=== PATIENT | male | born 1970 | race Caucasian/White ===

== ENCOUNTER 2017-07-29 09:10 | Emergency (ER) | payer BC ==
[2017-07-29 09:28] VITALS: BP 133/93
--- NOTE | 2017-07-29 10:16 | EDM.PDOC ---
ED HPI GENERAL MEDICAL PROBLEM - General Chief Complaint: Cardiovascular Problem Stated Complaint: HEART BEATING FAST Time Seen by Provider: 07/29/17 09:33 Source of Information: Reports: Patient History Limitations: Reports: No Limitations - History of Present Illness INITIAL COMMENTS - FREE TEXT/NARRATIVE: Patient has known history of atrial fibrillation. He had been taking metoprolol but is not at this time. He has been having palpitations over the last 2-3 weeks. He denies any shortness of breath, however he did have some chest pain. This has resolved. 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 He denies arm or jaw pain, no back pain, no diaphoresis, chills, abdominal pain, nausea, or vomiting. He did say he had blood in his stool and was supposed to have completed a kit for that. His primary had given it to him. We did talk about the importance of completing that to make sure colorectal cancer can be screened. Onset: Gradual Duration: Intermittent Location: Reports: Chest Quality: Reports: Ache (resolved on arrival to hospital) Severity: Mild Worsens with: Reports: Other (stress, anxiety) Associated Symptoms: Reports: No Other Symptoms - Related Data Allergies Allergy/AdvReac Type Severity Reaction Status Date / Time No Known Allergies Allergy Verified 07/29/17 09:31 Home Meds: Home Meds Aspirin [Adult Low Dose Aspirin EC] 81 mg PO DAILY 03/12/14 [History] Cholecalciferol (Vitamin D3) [Vitamin D3] 1,000 units PO DAILY 03/12/14 [History ] Fish Oil/Borage/Flax/Om3,6,9#1 [[place] 3-6-9 Complex Softgel] 2 each PO BID 03/12 [History] Flaxseed Oil 2 cap PO BID 03/12/14 [History] Glucosamine HCl 500 mg PO DAILY 03/12/14 [History] LORazepam 0.5 mg PO BID 03/12/14 [History] Lisinopril [Prinivil] 20 mg PO DAILY 03/12/14 [History] Metoprolol Succinate [Toprol XL] 3.12 mg PO DAILY 03/12/14 [History] Multivitamin [Super Multivitamin] 1 each PO DAILY 03/12/14 [History] Thiamine [Vitamin B-1] 100 mg PO BEDTIME 03/12/14 [History] Triamcinolone Acetonide 1 applic TOP BID 03/12/14 [History] buPROPion [Wellbutrin XL] 300 mg PO DAILY 03/12/14 [History] predniSONE [Prednisone] 40 mg PO DAILY #10 tablet 03/12/14 [Rx] Celecoxib [CeleBREX] 200 mg PO DAILY 07/29/17 [History] Cyanocobalamin (Vitamin B-12) [B-12] 1,000 mcg PO DAILY 07/29/17 [History] Tamsulosin [Tamsulosin 24 Hr] 0.8 mg PO DAILY 07/29/17 [History] Zolpidem Tartrate [Ambien] 10 mg PO BEDTIME PRN 07/29/17 [History] busPIRone [Buspar] 30 mg PO DAILY 07/29/17 [History] Past Medical History Cardiovascular History: Reports: High Cholesterol, Hypertension Social & Family History - Tobacco Use Smoking Status *Q: Unknown Ever Smoked ED ROS GENERAL - Review of Systems Review Of Systems: See Below Constitutional: Reports: No Symptoms HEENT: Reports: No Symptoms Respiratory: Reports: No Symptoms Cardiovascular: Reports: No Symptoms Endocrine: Reports: No Symptoms GI/Abdominal: Reports: No Symptoms : Reports: No Symptoms Musculoskeletal: Reports: No Symptoms Skin: Reports: No Symptoms Neurological: Reports: No Symptoms Psychiatric: Reports: No Symptoms Hematologic/Lymphatic: Reports: No Symptoms Immunologic: Reports: No Symptoms ED EXAM, GENERAL - Physical Exam Exam: See Below Exam Limited By: No Limitations General Appearance: Alert, WD/WN, No Apparent Distress Eye Exam: Bilateral Eye: EOMI, PERRL Neck: Normal Inspection, Supple, Non-Tender, Full Range of Motion Respiratory/Chest: No Respiratory Distress, Lungs Clear, Normal Breath Sounds, No Accessory Muscle Use, Chest Non-Tender Cardiovascular: Normal Peripheral Pulses, Regular Rate, Rhythm, No Edema, No Gallop, No JVD, No Murmur, No Rub Peripheral Pulses: 2+: Posterior Tibial (L), Posterior Tibial (R), Dorsalis Pedis (L), Dorsalis Pedis (R) GI/Abdominal: Normal Bowel Sounds, Soft, Non-Tender, No Organomegaly, No Distention, No Abnormal Bruit, No Mass Back Exam: Normal Inspection, Full Range of Motion, NT Extremities: Normal Inspection, Normal Range of Motion, Non-Tender, Normal Capillary Refill, No Pedal Edema Neurological: Alert, Oriented, CN II-XII Intact, Normal Cognition, Normal Gait, Normal Reflexes, No Motor/Sensory Deficits Psychiatric: Normal Affect, Normal Mood Skin Exam: Warm, Dry, Intact, Normal Color, No Rash Lymphatic: No Adenopathy Course - Vital Signs Last Recorded V/S: Last Vital Signs Temp 35.2 C 07/29/17 09:20 Pulse 90 07/29/17 09:20 Resp 16 07/29/17 09:20 BP 133/93 H 07/29/17 09:20 Pulse Ox 98 07/29/17 09:20 - Orders/Labs/Meds Labs: Laboratory Tests 07/29/17 07/29/17 07/29/17 Range/Units 09:48 09:48 09:48 WBC 5.2 (4.0-10.0) x10^3/uL RBC 4.15 L (4.5-6.0) x10^6/uL Hgb 13.9 L (14.0-18.0) g/dL Hct 39.3 L (40.0-52.0) % MCV 94.7 H (78.0-93.0) fL MCH 33.5 H (26.0-32.0) pg MCHC 35.4 (32.0-36.0) g/dL RDW Coeff of Qamar 11.5 (10.0-15.0) % Plt Count 288 (130-400) x10^3/uL Neut % (Auto) 68.1 (50.0-80.0) % Lymph % (Auto) 18.6 L (25.0-50.0) % [place] % (Auto) 11.7 H (2.0-11.0) % Eos % (Auto) 0.8 (0.0-4.0) % Baso % (Auto) 0.8 (0.2-1.2) % Sodium 131 L (136-145) mmol/L Potassium 4.2 (3.5-5.1) mmol/L Chloride 98 (98-107) mmol/L Carbon Dioxide 26 (21-32) mmol/L Anion Gap 11.2 (10-20) mmol/L BUN 15 (7-18) mg/dL Creatinine 0.9 (0.70-1.30) mg/dL Est Cr Clr Drug Dosing TNP Estimated GFR (MDRD) > 60 Glucose 103 (74-106) mg/dL Calcium 8.8 (8.5-10.1) mg/dL Magnesium 2.1 (1.8-2.4) mg/dL Troponin I < 0.017 (<=0.056) ng/mL TSH, Ultra Sensitive 0.836 (0.358-3.74) uIU/mL Departure - Departure Time of Disposition: 10:50 Disposition: Home, Self-Care 01 Condition: Good Clinical Impression: Atrial fibrillation Instructions: Atrial Fibrillation, [id number] Referrals: Anuradha Akins, DO [Primary Care Provider] - Forms: ED Department Discharge Additional Instructions: You are going into and out of atrial fibrillation Restart your metoprolol and follow up with Dr. Akins You also need to do your stool sample she gave you Stay well hydrated Atrial fibrillation can be triggered by stress, heat, anxiety, caffeine. Try to avoid as many triggers as you can.
[2017-07-29 10:24] LABS: CHLORIDE,CL 98 mmol/L (98-107); SODIUM,NA 131 mmol/L (136-145)
== END 2017-07-29 10:50 | disposition home or self-care (01) ==
LOC: VM.ED 09:10
DX: I48.91 Unspecified atrial fibrillation (principal); E78.00 Pure hypercholesterolemia, unspecified; I10 Essential (primary) hypertension; Z79.82 Long term (current) use of aspirin; Z79.899 Other long term (current) drug therapy
CPT/HCPCS: 36415; 80048; 83735; 84443; 84484; 85025; 99285

== ENCOUNTER 2018-07-10 20:02 | Emergency (ER) | payer BC ==
[2018-07-10] MEDS ORDERED: cefTRIAXone 2 GM, Lidocaine 1% 4.2 ML IM ONE ×2 (20:21)
[2018-07-10] MEDS ORDERED: predniSONE 20 MG Tab PO ONE (20:21)
[2018-07-10] MEDS ORDERED: diphenhydrAMINE 25 MG Cap PO ONE (20:21)
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
[2018-07-10 21:26] VITALS: BP 150/68
== END 2018-07-10 20:48 | disposition home or self-care (01) ==
LOC: VM.ED 20:02
DX: L03.114 Cellulitis of left upper limb (principal); E78.00 Pure hypercholesterolemia, unspecified; I10 Essential (primary) hypertension; Z79.899 Other long term (current) drug therapy; Z79.82 Long term (current) use of aspirin
CPT/HCPCS: 96372; 99281; A9270-GY; J0696; J2001

== ENCOUNTER 2019-03-13 20:53 | Observation (INO) | payer BC ==
[2019-03-13] MEDS ORDERED: Aspirin 81 MG Tab.Chew PO ONE ×2 (21:32→22:11)
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
[2019-03-13 21:58] LABS: ANION GAP 11.9 mmol/L (10-20); CHLORIDE,CL 93 mmol/L (98-107); SODIUM,NA 131 mmol/L (136-145)
[2019-03-13] MEDS ORDERED: Sodium Chloride 0.9% 10 ML Syringe FLUSH PRN ×3 (23:28)
[2019-03-13] MEDS ORDERED: Zolpidem 5 MG Tab PO PRN (23:35)
[2019-03-14 05:13] VITALS: PULSE 55
[2019-03-14 07:19] LABS: CHLORIDE,CL 100 mmol/L (98-107); SODIUM,NA 136 mmol/L (136-145)
[2019-03-14 07:24] LABS: ANION GAP 10.9 mmol/L (10-20)
--- NOTE | 2019-03-14 07:56 | CR ---
[id number] RAD/RAD Chest PA And Lateral EXAM: RAD Chest PA And Lateral INDICATION: CHEST PAIN COMPARISON: None. DISCUSSION: Cardiomediastinal silhouette is normal in size and contour. No infiltrate, effusion, pneumothorax, or edema. IMPRESSION: Negative examination of the chest. James Wray MD 03/14/19 0755 Thank you for allowing us to participate in the care of your patient.
[2019-03-14 07:59] VITALS: BP 129/90
[2019-03-14] MEDS ORDERED: Metoprolol Succinate 25 MG Tab.ER PO SCH ×2 (08:00→20:00)
[2019-03-14] MEDS ORDERED: buPROPion 150 MG Tab.ER PO SCH (08:00)
[2019-03-14] MEDS ORDERED: Lisinopril 20 MG Tab PO SCH (08:00)
[2019-03-14] MEDS ORDERED: Apixaban 2.5 MG Tab PO SCH (08:00)
[2019-03-14] MEDS ORDERED: LORazepam 0.5 MG Tab PO SCH (08:00)
--- NOTE | 2019-03-15 04:20 | DISCH ---
PRIMARY DISCHARGE DIAGNOSES: 1. Chest pain, felt to be noncardiac. The patient had been doing quite a bit of heavy lifting. 2. Essential hypertension with elevated blood pressures 166/99 on admission, but improved to 129/90 by discharge. 3. Known history of paroxysmal atrial fibrillation. He had no episodes during this stay. 4. Known history of alcohol overuse. He said he did really drink yesterday as he did not feel well, but the day before he had several beers, maybe like 12. 5. Hyperlipidemia. 6. Anxiety. 7. Obstructive sleep apnea. REASON FOR ADMISSION: On the date of admission, this 48-year-old male who had been having chest discomfort for greater than 24 hours, presented to the ER. His blood pressure was even higher at home at one point like over 200/110. He was having some pain actually going into his left arm and his left leg. It was lasting pretty persistently. It has gone now. He did try taking his Ativan, even 2 pills. It did not help. He is on Cardizem and Toprol 12.5 mg daily. He made the decision to come in and was evaluated. His troponin was negative on admission, and then again at 1:30 this morning. His sodium initially low at 131, was normal at 136 on discharge. His hemoglobin was stable at 12.5. He was feeling better this morning. Blood pressure was improved despite not even getting his full dose of lisinopril yet or the Cardizem. Heart rates were in the 50s and 60s in a sinus rhythm, and overall it was felt he could be discharged home with outpatient followup. He has already seen the end packer, Dr. Jones. I will send him a note. 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 I anticipate some of his chest discomfort was chest wall pain. The patient also has a known history of anxiety and alcohol use. We strongly encouraged him to cut back further on drinking. His was present during this discussion. DISCHARGE PLANS AND INSTRUCTIONS: The patient will follow up with Dr. Akins next month as planned, sooner if needed. He will increase the Toprol to 25 mg daily. He will keep his appointment with Electrophysiology. He will continue on Cardizem 240 daily and lisinopril 30 daily. Also, he will limit alcohol to no more than 4 drinks a day. PHYSICAL EXAMINATION: Vital signs: Discharging weight 100.7 kg, temperature 96.5, pulse 55, blood pressure 129/90, respiratory rate 18, O2 of 99% on room air. General: He is in no acute distress. Heart: Regular rate and rhythm. S1, S2 without murmur. Lungs: Sounds are clear to auscultation bilaterally without crackles or wheezes. Abdomen: Has positive bowel sounds. Soft, nontender. Extremities: Warm and dry. No edema. Mental status: Alert and orientated x3. Psych: He is mildly anxious. MKA: 03/14/2019 20:44:01 MODL: 03/15/2019 04:13:54 /[id number]
== END 2019-03-14 09:25 | disposition home or self-care (01) ==
LOC: VM.ED 20:53 → VM.MS 23:05
PROVIDERS: ADMIT Family Medicine; ATTEND Internal Medicine
DX: R07.89 Other chest pain (principal); I10 Essential (primary) hypertension; E78.5 Hyperlipidemia, unspecified; E78.00 Pure hypercholesterolemia, unspecified; F41.9 Anxiety disorder, unspecified; G47.33 Obstructive sleep apnea (adult) (pediatric); M19.90 Unspecified osteoarthritis, unspecified site; Z86.79 Personal history of other diseases of the circulatory system; Z79.1 Long term (current) use of non-steroidal anti-inflammatories (NSAID); Z79.899 Other long term (current) drug therapy
CPT/HCPCS: 36415; 71046; 80048; 84484; 85025; 85027; 93005; 99285; A9270; G0378

== ENCOUNTER 2019-08-04 13:24 | Emergency (ER) | payer BC ==
[2019-08-04 13:31] VITALS: BP 161/100; PULSE 77
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
--- NOTE | 2019-08-04 14:11 | CR ---
[id number] RAD/RAD Hand Left 3V EXAM: RAD Hand Left 3V INDICATION: Trauma, slammed hand in door. COMPARISON: None. DISCUSSION: There is significant dorsal soft tissue swelling. A 5 x 2 mm radiodense foreign body is suggested in the dorsal hand at the level of the second metacarpal head. Moderate metacarpophalangeal, first carpometacarpal and interphalangeal osteoarthritis. Prominent osteophytes and dystrophic calcification along the dorsal aspect of the third metacarpal head. Possible nondisplaced fracture involving the second metacarpal base and only seen on the oblique view. IMPRESSION: 1. Possible nondisplaced second metacarpal base fracture. 2. Soft tissue swelling and foreign body in the dorsum of the hand. Jeromy Cooper MD 08/04/19 1417 Thank you for allowing us to participate in the care of your patient.
[2019-08-04] MEDS ORDERED: Take Home: Acetaminophen/HYDROcodone 325-5 MG, 5 Tab Pack PO ONE (14:39)
== END 2019-08-04 14:45 | disposition home or self-care (01) ==
LOC: VM.ED 13:24
DX: S62.309A Unspecified fracture of unspecified metacarpal bone, initial encounter for closed fracture (principal); I10 Essential (primary) hypertension; F41.9 Anxiety disorder, unspecified; I48.0 Paroxysmal atrial fibrillation; Z79.01 Long term (current) use of anticoagulants; Z79.899 Other long term (current) drug therapy; W23.0XXA Caught, crushed, jammed, or pinched between moving objects, initial encounter
CPT/HCPCS: 73130-LT; 99283; A9270-GY

== ENCOUNTER 2021-05-21 08:06 | Emergency (ER) | payer BC ==
[2021-05-21] MEDS ORDERED: GI Cocktail Oral Solution 30 ML PO ONE (08:35)
[2021-05-21 08:39] VITALS: PULSE 81
[2021-05-21 09:40] VITALS: BP 151/90
== END 2021-05-21 09:46 | disposition home or self-care (01) ==
LOC: VM.ED 08:06
DX: K21.9 Gastro-esophageal reflux disease without esophagitis (principal); E78.00 Pure hypercholesterolemia, unspecified; I10 Essential (primary) hypertension; I48.0 Paroxysmal atrial fibrillation; Z79.01 Long term (current) use of anticoagulants; Z79.899 Other long term (current) drug therapy
CPT/HCPCS: 93005; 93010; 99284; A9270-GY

== ENCOUNTER 2023-01-26 07:33 | Day surgery (SDC) | payer BC ==
[~2023-01-26 07:33] MED LIST: Lactated Ringers 1,000 ML IV SCH
[2023-01-26] MEDS ORDERED: fentaNYL 100 MCG/2 ML SDV ONE (08:08)
[2023-01-26] MEDS ORDERED: Propofol 200 MG/20 ML SDV ONE ×3 (08:08→09:55)
[2023-01-26 10:34] VITALS: BP 157/94; PULSE 55
== END 2023-01-26 11:15 | disposition home or self-care (01) ==
LOC: VM.SDS 07:33
PROVIDERS: ATTEND Family Medicine
DX: Z12.11 Encounter for screening for malignant neoplasm of colon (principal); K63.5 Polyp of colon; I10 Essential (primary) hypertension; I48.0 Paroxysmal atrial fibrillation; E66.9 Obesity, unspecified; Z68.32 Body mass index [BMI] 32.0-32.9, adult; F41.9 Anxiety disorder, unspecified; E78.2 Mixed hyperlipidemia; G47.33 Obstructive sleep apnea (adult) (pediatric); Z79.82 Long term (current) use of aspirin; Z79.899 Other long term (current) drug therapy
CPT/HCPCS: 00812; J2704; J3010; J7120